=== PATIENT | male | born 1950 | race Caucasian/White ===

== ENCOUNTER 2020-03-08 11:00 | Emergency (ER) | payer MEDICARE ==
[2020-03-08] MEDS ORDERED: Aspirin 81 MG Tab.Chew PO ONE (11:07)
--- NOTE | 2020-03-08 11:22 | EDM.PDOC ---
ED HPI GENERAL MEDICAL PROBLEM - General Chief Complaint: Chest Pain Stated Complaint: CHEST PAIN Time Seen by Provider: 03/08/20 11:17 Source of Information: Reports: Patient History Limitations: Reports: No Limitations - History of Present Illness INITIAL COMMENTS - FREE TEXT/NARRATIVE: Patient presents to ER with acute onset fo chest pain that began before going to be last night. Patient was unable to sleep secondary to pain and discomfort. Chest pain has not resolved since onset. Patient went on a bike ride yesterday afternoon without any notable concerning symptoms. Patient just feel crummy. He denies nausea, vomiting with last meal around 9 am. Patient denies shortness of breath, cough or any respiratory symptom or exposures concerning for COVID. Patient has a fairly negative cardiac history, took 2 325 mg Aspirin this am per direction of his . Patient thought his symptoms were more chest wall due to changing handle bars on his bike. family history: mother family significant cardiac history with social risk factors of smoking and alcohol use. - Related Data Allergies Allergy/AdvReac Type Severity Reaction Status Date / Time No Known Allergies Allergy Verified 03/08/20 11:08 Home Meds: Home Meds Tamsulosin HCl [Flomax] 1 tab PO DAILY 03/08/20 [History] Past Medical History - Past Surgical History GI Surgical History: Reports: Hernia, Inguinal Musculoskeletal Surgical History: Reports: Knee Replacement ED ROS GENERAL - Review of Systems Review Of Systems: Comprehensive ROS is negative, except as noted in HPI. ED EXAM, GENERAL - Physical Exam Exam: See Below Exam Limited By: No Limitations General Appearance: Alert, WD/WN, Mild Distress Eye Exam: Bilateral Eye: EOMI Ears: Normal External Exam, Hearing Grossly Normal Nose: Normal Inspection, No Blood Throat/Mouth: Normal Inspection, Normal Voice, No Airway Compromise Neck: Normal Inspection, Supple, Non-Tender, Full Range of Motion Respiratory/Chest: No Respiratory Distress, Lungs Clear, Normal Breath Sounds Cardiovascular: Normal Peripheral Pulses, Regular Rate, Rhythm Peripheral Pulses: 4+: Radial (L), Radial (R) GI/Abdominal: Normal Bowel Sounds, Soft, Non-Tender (Male) Exam: Deferred Rectal (Males) Exam: Deferred Extremities: Normal Inspection, Normal Capillary Refill Neurological: Alert, Oriented, CN II-XII Intact, Normal Cognition, Normal Gait, Normal Reflexes, No Motor/Sensory Deficits Psychiatric: Normal Affect, Normal Mood Skin Exam: Warm, Dry, Intact, Normal Color, No Rash EKG INTERPRETATION EKG Date: 03/08/20 Time: 11:00 Rhythm: NSR [place]: Normal P-Wave: Present QRS: Normal ST-T: Elevated QT: Normal Comparison: NA - No Prior EKG (ST elevation in V1-V5 with recipocol changes in LEAD III and aVR) Course - Vital Signs Last Recorded V/S: Last Vital Signs Temp 35.8 C L 03/08/20 11:21 Pulse 80 03/08/20 11:38 Resp 16 03/08/20 11:38 BP 135/83 03/08/20 11:41 Pulse Ox 98 03/08/20 11:38 - Orders/Labs/Meds Orders: Active Orders 24 hr Category Date Time Status Cardiac Monitoring [RC] .As Directed Care 03/08/20 11:07 Active Cardiac Monitoring [RC] STAT Care 03/08/20 11:29 Active Communication Order [RC] Per Unit Routine Care 03/08/20 11:29 Active Communication Order [RC] Per Unit Routine Care 03/08/20 11:29 Active EKG Documentation Completion [RC] ASDIRECTED Care 03/08/20 11:07 Active Oxygen Therapy [RC] ASDIRECTED Care 03/08/20 11:29 Active Peripheral IV Care [RC] . DIRECTED Care 03/08/20 11:07 Active Chest 1V Frontal [CR] Stat Exams 03/08/20 11:23 Taken Peripheral IV Insertion Adult [OM.PC] Urgent Oth 03/08/20 11:07 Ordered EKG 12 Lead [EK] Urgent Ther 03/08/20 11:07 Ordered Labs: Laboratory Tests 03/08/20 03/08/20 03/08/20 Range/Units 11:15 11:15 11:23 WBC 7.0 (4.5-11.0) K/uL RBC 5.60 (4.30-5.90) M/uL Hgb 15.7 H (12.0-15.0) g/dL Hct 47.2 (40.0-54.0) % MCV 84 (80-98) fL MCH 28 (27-31) pg MCHC 33 (32-36) % Plt Count 275 (150-400) K/uL Neut % (Auto) 46 (36-66) % Lymph % (Auto) 40 (24-44) % [place] % (Auto) 12 H (2-6) % Eos % (Auto) 2 (2-4) % Baso % (Auto) 0 (0-1) % APTT 25.4 L (27.0-36.0) sec Sodium 142 (140-148) mmol/L Potassium 3.8 (3.6-5.2) mmol/L Chloride 102 (100-108) mmol/L Carbon Dioxide 29 (21-32) mmol/L Anion Gap 10.7 (5.0-14.0) mmol/L BUN 21 H (7-18) mg/dL Creatinine 1.1 (0.8-1.3) mg/dL Est Cr Clr Drug Dosing 69.41 mL/min Estimated GFR (MDRD) > 60 (>60) Glucose 126 H (74-106) mg/dL Calcium 9.1 (8.5-10.1) mg/dL Total Bilirubin 0.6 (0.2-1.0) mg/dL AST 25 (15-37) U/L ALT 37 (12-78) U/L Alkaline Phosphatase 118 H (46-116) U/L Troponin I 0.105 H* (0.000-0.056) ng/mL Total Protein 7.6 (6.4-8.2) g/dL Albumin 3.8 (3.4-5.0) g/dL Globulin 3.8 H (2.3-3.5) g/dL Albumin/Globulin Ratio 1.0 L (1.2-2.2) Meds: Medications Discontinued Medications Generic Name Dose Route Start Last Admin Trade Name Nellie PRN Reason Stop Dose Admin Aspirin 324 mg 03/08/20 11:07 03/08/20 11:26 Aspirin PO 03/08/20 11:08 Not Given ONETIME ONE Atorvastatin Calcium 80 mg 03/08/20 11:30 03/08/20 11:40 Lipitor PO 03/08/20 11:31 80 mg ONETIME ONE Administration Heparin Sodium (Porcine) 4,000 units 03/08/20 11:23 03/08/20 11:50 Heparin Sodium IVPUSH 03/08/20 11:24 4,000 units BOLUS ONE Administration Heparin Sodium/Dextrose 25,000 units in 500 mls @ 22.208 mls/hr 03/08/20 11:30 03/08/20 11:55 Heparin 25,000 Units In D5w 500 Ml IV 12 units/kg/hr TITRATE DE 22.208 mls/hr Administration Protocol 12 UNITS/KG/HR Morphine Sulfate 2 mg 03/08/20 11:23 03/08/20 11:54 Morphine IVPUSH 03/09/20 11:29 2 mg Q10M PRN Administration Chest Pain Nitroglycerin 0.4 mg 03/08/20 11:07 03/08/20 11:41 Nitrostat SL 0.4 mg Q5M PRN Administration Chest Pain Ondansetron HCl 4 mg 03/08/20 11:23 03/08/20 11:51 Zofran IVPUSH 03/08/20 11:24 4 mg ONETIME ONE Administration Sodium Chloride 10 ml 03/08/20 11:06 03/08/20 11:55 Saline Flush FLUSH 10 ml ASDIRECTED PRN Administration Keep Vein Open - Radiology Interpretation Free Text/Narrative:: CXR PA portable: No acute cardiopulmonary findings noted. Image read by myself, radiology over read pending. - Re-Assessments/Exams Free Text/Narrative Re-Assessment/Exam: Contacted [facility]ology regarding transfer of acute STEMI. Additional orders given y Dr Sandhu to assist in work-up and plan urgent emergent transport to [facility] for cardiology intervention. 03/08/20 11:10 Asked back into examination room to discuss EKG findings concerning for blocked blood flow to the heart indication STEMI. Patient agreed to transport to [facility] for Cardiac intervention. I did mention that if open heart surgery would be required transport to [place] would need to be arranged. Patient may request transfer to [facility], which is closer to home. Patient and are visiting the [place] area. 03/08/20 11:41 Departure - Departure Time of Disposition: 12:20 Disposition: DC/Tfer to Acute Hospital 02 Reason for Transfer *Q: Primary PCI Indicated (Cardiac manager cardiac cath) Condition: Serious Clinical Impression: Acute myocardial infarction Referrals: PCP,None [Primary Care Provider] - Forms: ED Department Discharge, Interfacility Transfer [facility] Sepsis Event Note (ED) - Focused Exam Vital Signs: Vital Signs Temp Pulse Resp BP BP Pulse Ox 03/08/20 11:41 135/83 03/08/20 11:38 80 16 135/83 98 03/08/20 11:26 155/88 H 03/08/20 11:21 35.8 C L 73 12 155/88 H 99 03/08/20 11:10 35.8 C L 73 12 155/88 H 99 - My Orders Last 24 Hours: My Active Orders 03/08/20 11:07 Cardiac Monitoring [RC] .As Directed EKG Documentation Completion [RC] ASDIRECTED Peripheral IV Care [RC] . DIRECTED Peripheral IV Insertion Adult [OM.PC] Urgent EKG 12 Lead [EK] Urgent 03/08/20 11:23 Chest 1V Frontal [CR] Stat 03/08/20 11:29 Cardiac Monitoring [RC] STAT Communication Order [RC] Per Unit Routine Communication Order [RC] Per Unit Routine Oxygen Therapy [RC] ASDIRECTED - Assessment/Plan Last 24 Hours: My Active Orders 03/08/20 11:07 Cardiac Monitoring [RC] .As Directed EKG Documentation Completion [RC] ASDIRECTED Peripheral IV Care [RC] . DIRECTED Peripheral IV Insertion Adult [OM.PC] Urgent EKG 12 Lead [EK] Urgent 03/08/20 11:23 Chest 1V Frontal [CR] Stat 03/08/20 11:29 Cardiac Monitoring [RC] STAT Communication Order [RC] Per Unit Routine Communication Order [RC] Per Unit Routine Oxygen Therapy [RC] ASDIRECTED
[2020-03-08] MEDS ORDERED: Heparin Sodium 5,000 Units/ML Vial IVPUSH ONE (11:23)
[2020-03-08] MEDS ORDERED: Morphine 2 MG/ML Syringe IVPUSH PRN (11:23)
[2020-03-08] MEDS ORDERED: Ondansetron 4 MG/2 ML SDV IVPUSH ONE (11:23)
[2020-03-08] MEDS: Sodium Chloride 0.9% 10 ML Syringe FLUSH PRN ×2 (11:26→11:55)
[2020-03-08] MEDS: Nitroglycerin 0.4 MG Tab.SL SL PRN ×2 (11:26→11:41)
[2020-03-08] MEDS ORDERED: atorvaSTATin 20 MG Tab PO ONE (11:30)
[2020-03-08] MEDS ORDERED: Heparin Sodium/D5W 25,000 UNITS/500 ML BAG IV SCH (11:30)
--- NOTE | 2020-03-08 13:16 | CR ---
CHEST: Portable 03/08/2020 at 11:45 AM CLINICAL HISTORY:Chest pain COMPARISON:None FINDINGS: The heart size, pulmonary vascularity and hilar structures are normal. No infiltrate effusion or pneumothorax is seen. IMPRESSION: No acute cardiopulmonary process.
== END 2020-03-08 12:18 ==
LOC: JP.ED 11:00
DX: I21.9 Acute myocardial infarction, unspecified (principal); Z79.899 Other long term (current) drug therapy
CPT/HCPCS: 36415; 71045; 80053; 84484; 85025; 85730; 93005; 96374; 96375; 99285; A9270; J1644; J2270; J2405